=== PATIENT | female | born 1950 | race Caucasian/White ===

== ENCOUNTER 2020-06-26 13:49 | Emergency (ER) | payer MEDICARE, BC ==
[2020-06-26] MEDS: Aspirin 81 MG Tab.Chew PO ONE (14:09)
[2020-06-26 14:33] LABS: PTT,PARTIAL THROMBOPLSTIN TIME 24.7 SEC (25.6-32.8)
[2020-06-26 14:39] LABS: CHLORIDE,CL 102 mmol/L (98-107); SODIUM,NA 139 mmol/L (136-145)
[2020-06-26] MEDS: Nitroglycerin 0.4 MG Tab.SL SL ONE (14:46)
--- NOTE | 2020-06-26 14:46 | EDM.PDOC ---
ED HPI GENERAL MEDICAL PROBLEM - General Stated Complaint: TIGHTNESS Time Seen by Provider: 06/26/20 13:50 Source of Information: Reports: Patient History Limitations: Reports: No Limitations - History of Present Illness INITIAL COMMENTS - FREE TEXT/NARRATIVE: Patient comes emergency department today from home with complaints of tightness in her chest. This patient has a longstanding history of what she calls a cardiac dysrhythmia that she has PACs and PAT's. She has had increasing palpitations over the past couple of weeks. An EKG and Holter monitor placed on Sunday. Since last night every time that she gets up to do anything to ambulate around her when she starts to get tightness in her chest and she gets shortness of breath. This usually happens with physical exertion but it has been jefferson ppening at rest as well. Does improve most the time when she sits down. She did take her aspirin this morning is normal. She has had no cough or congestion. No weakness dizziness lightheadedness. No syncope. She has had increased palpitations especially with physical exertion. No diaphoresis nausea or vomiting. No generalized malaise or fatigue. No abdominal pain nausea or vomiting. No hematuria dysuria or urinary frequency. No black or tarry stools. She has never had any cardiac intervention. She is on Toprol for her palpitations. NO COVID exposure no COVID symptoms. She does have the tightness in her chest when she arrives and does not resolved when sitting down. Chest Pain Score (Numeric/FACES): 6 - Related Data Allergies Allergy/AdvReac Type Severity Reaction Status Date / Time epinephrine Allergy Arrhythmias Verified 06/26/20 14:35 Sulfa (Sulfonamide Allergy Rash Verified 06/26/20 14:35 Antibiotics) ED ROS GENERAL - Review of Systems Review Of Systems: Comprehensive ROS is negative, except as noted in HPI. ED EXAM, GENERAL - Physical Exam Exam: See Below Exam Limited By: No Limitations General Appearance: Alert, WD/WN, No Apparent Distress Eye Exam: Bilateral Eye: EOMI, PERRL Ears: Normal External Exam Nose: Normal Inspection, Normal Mucosa Throat/Mouth: Normal Inspection, Normal Lips, Normal Voice Head: Atraumatic, Normocephalic Neck: Normal Inspection, Supple, Non-Tender Respiratory/Chest: No Respiratory Distress, Lungs Clear, Normal Breath Sounds, No Accessory Muscle Use, Chest Non-Tender Cardiovascular: Normal Peripheral Pulses, Regular Rate, Rhythm Peripheral Pulses: 2+: Radial (L), Radial (R), Posterior Tibial (L), Posterior Tibial (R), Dorsalis Pedis (L), Dorsalis Pedis (R) GI/Abdominal: Normal Bowel Sounds, Soft, Non-Tender, No Distention (Female) Exam: Deferred Rectal (Female) Exam: Deferred Back Exam: Normal Inspection, Full Range of Motion Extremities: Normal Inspection, Normal Range of Motion, No Pedal Edema, Normal Capillary Refill Neurological: Alert, Oriented, Normal Cognition, No Motor/Sensory Deficits Psychiatric: Normal Affect, Normal Mood Skin Exam: Warm, Dry, Intact, Normal Color, No Rash #1 Interpretation EKG Date: 06/26/20 Time: 13:51 Rhythm: NSR Rate (Beats/Min): 88 [place]: Normal P-Wave: Present QRS: Normal ST-T: Normal QT: Normal Comparison: No Change Course - Vital Signs Last Recorded V/S: Last Vital Signs Temp 98.6 F 06/26/20 13:51 Pulse 79 06/26/20 15:07 Resp 16 06/26/20 15:07 BP 124/64 06/26/20 15:07 Pulse Ox 95 06/26/20 15:07 - Orders/Labs/Meds Orders: Active Orders 24 hr Category Date Time Status Peripheral IV Insertion Adult [OM.PC] Stat Oth 06/26/20 13:56 Ordered Labs: Laboratory Tests 06/26/20 06/26/20 06/26/20 Range/Units 14:05 14:05 14:05 WBC 6.8 (4.0-10.0) x10^3/uL RBC 4.87 (4.00-5.50) x10^6/uL Hgb 14.2 (12.0-16.0) g/dL Hct 42.7 (33.0-47.0) % MCV 87.7 (78.0-93.0) fL MCH 29.2 (26.0-32.0) pg MCHC 33.3 (32.0-36.0) g/dL RDW Coeff of Bert 14.1 (10.0-15.0) % Plt Count 285 (130-400) x10^3/uL Neut % (Auto) 56.2 (50.0-80.0) % Lymph % (Auto) 30.7 (25.0-50.0) % [place] % (Auto) 8.7 (2.0-11.0) % Eos % (Auto) 4.0 (0.0-4.0) % Baso % (Auto) 0.4 (0.2-1.2) % PT 10.4 (9.9-12.5) SEC INR 0.9 L (2.0-3.5) APTT 24.7 L (25.6-32.8) SEC Sodium 139 (136-145) mmol/L Potassium 5.0 (3.5-5.1) mmol/L Chloride 102 (98-107) mmol/L Carbon Dioxide 28 (21-32) mmol/L Anion Gap 14.0 (5-15) mmol/L BUN 16 (7-18) mg/dL Creatinine 0.7 (0.55-1.02) mg/dL Est Cr Clr Drug Dosing TNP Estimated GFR (MDRD) > 60 Glucose 105 (74-106) mg/dL Calcium 9.2 (8.5-10.1) mg/dL Corrected Calcium 9.60 (8.5-10.1) mg/dL Total Bilirubin 0.5 (0.2-1.0) mg/dL AST 47 H (15-37) U/L ALT 31 (14-59) U/L Alkaline Phosphatase 85 (46-116) U/L Troponin I < 0.017 (<=0.056) ng/mL Total Protein 7.9 (6.4-8.2) g/dL Albumin 3.5 (3.4-5.0) g/dL Globulin 4.4 Albumin/Globulin Ratio 0.80 Meds: Medications Discontinued Medications Generic Name Dose Route Start Last Admin Trade Name Freq PRN Reason Stop Dose Admin Aspirin 324 mg 06/26/20 13:57 06/26/20 14:09 Aspirin PO 06/26/20 13:58 324 mg ONETIME ONE Administration Heparin Sodium (Porcine) 4,000 units 06/26/20 16:11 06/26/20 16:21 Heparin Sodium IVPUSH 06/26/20 16:12 4,000 units .BOLUS ONE Administration Heparin Sodium (Porcine) Confirm 06/26/20 16:25 06/26/20 16:24 Heparin Sodium Administered 06/26/20 16:26 Not Given Dose 5,000 units .ROUTE .STK-MED ONE Nitroglycerin/Dextrose 25 mg in 250 mls @ 6 mls/hr 06/26/20 16:15 06/26/20 16:19 Nitroglycerin 25 Mg/D5w 250 Ml IV 5 mcg/min TITRATE TINO 3 mls/hr Administration Protocol 10 MCG/MIN Heparin Sodium/Sodium Chloride 25,000 units in 500 mls @ 16.8 mls/hr 06/26/20 16:15 06/26/20 16:20 Heparin 25,000 Units In 1/2 Ns 500 Ml IV 840 units/hr TITRATE TINO 16.8 mls/hr Administration Protocol 840 UNITS/HR Heparin Sodium/Sodium Chloride Confirm 06/26/20 16:25 06/26/20 16:24 Heparin 25,000 Units In 1/2 Ns 500 Ml Administered 06/26/20 16:26 Not Given Dose 500 mls @ as directed .ROUTE .STK-MED ONE Nitroglycerin 0.4 mg 06/26/20 14:27 06/26/20 14:46 Nitrostat SL 06/26/20 14:28 0.4 mg ONETIME ONE Administration Sodium Chloride 10 ml 06/26/20 13:57 06/26/20 14:47 Saline Flush FLUSH 10 ml ASDIRECTED PRN Administration Keep Vein Open - Re-Assessments/Exams Free Text/Narrative Re-Assessment/Exam: 06/26/[address] elevation or depression with some PACs. Aspirin 324 orally and 1 nitro tab SL. Nitro with resolution of the SOB and tightness. Labs drawn CXR negative per radiology. Laboratory evaluation is rather unremarkable with a normal white blood cell count hemoglobin and platelets. Her CMP is normal other than an AST mildly elevated at 47. Troponin less than 0.017. Shortly after her labs returned she got up and went back to the bathroom and she had recurrence of the tightness in her chest that maintained while she was laying in bed. I then started on nitro drip at 5 mics a minute as well as heparin of 4000 unit bolus and then 840 units an hour. I have concerns for Unstable angina at this time. I called and spoke with Dr. Burch at [facility] in [place]. HPI ER COURSE findings and concerns were relayed to him verbally over the phone. His questions were answered and he was comfortable with this plan and he accepted the patient in transfer at this time. I returned to the room and discussed with the patient my concerns for unstable angina with her presentation and resolution of chest pain with nitro and his reoccurrence with physical exertion. I think it is best for her to be where cardiology is and possibly get a stress test in the morning. She is agreement with this. We will transfer to [facility] by [facility] ambulance. Departure - Departure Time of Disposition: 15:35 Disposition: DC/Tfer to [facility] 02 Reason for Transfer *Q: Other Clinical Impression: Unstable angina Referrals: Meena Swift MD [Primary Care Provider] - Forms: Interfacility Transfer EMTALA Sepsis Event Note (ED) - Focused Exam Vital Signs: Vital Signs Temp Pulse Resp BP BP Pulse Ox 06/26/20 15:07 79 16 124/64 95 06/26/20 14:49 68 15 131/61 98 06/26/20 14:46 131/61 06/26/20 14:37 72 18 120/58 L 98 06/26/20 13:51 98.6 F 81 14 161/68 H 99 - My Orders Last 24 Hours: My Active Orders 06/26/20 13:56 Peripheral IV Insertion Adult [OM.PC] Stat - Assessment/Plan Last 24 Hours: My Active Orders 06/26/20 13:56 Peripheral IV Insertion Adult [OM.PC] Stat
[2020-06-26] MEDS: Sodium Chloride 0.9% 10 ML Syringe FLUSH PRN (14:47)
--- NOTE | 2020-06-26 15:13 | CR ---
[id number] RAD/RAD Chest PA And Lateral EXAM: RAD Chest PA And Lateral INDICATION: CHEST PAIN, PALPITATION. COMPARISON: None. DISCUSSION: Cardiomediastinal silhouette is normal in size and contour. Lungs are clear. No pleural effusion or pneumothorax. IMPRESSION: Negative examination of the chest. Austin Love MD 06/26/20 [id number] Thank you for allowing us to participate in the care of your patient.
[2020-06-26] MEDS: Nitroglycerin/D5W 25 MG/250 ML BOTTLE IV SCH (16:19)
[2020-06-26] MEDS: Heparin Sodium/0.45% NaCl 25,000 UNITS/500 ML BAG IV SCH (16:20)
[2020-06-26] MEDS: Heparin Sodium 5,000 Units/ML Vial IVPUSH ONE (16:21)
[2020-06-26] MEDS: Heparin Sodium 5,000 Units/ML Vial ONE (16:24)
[2020-06-26] MEDS: Heparin Sodium/0.45% NaCl 500 ML ONE (16:24)
== END 2020-06-26 16:59 | disposition short-term general hospital (02) ==
LOC: VM.ED 13:49
DX: I20.0 Unstable angina (principal); R74.01 Elevation of levels of liver transaminase levels; Z88.8 Allergy status to other drugs, medicaments and biological substances; Z88.2 Allergy status to sulfonamides
CPT/HCPCS: 71046; 80053; 84484; 85025; 85610; 85730; 93005; 93010; 96365; 96368; 99284; 99285-25; A9270-GY; J1644; J3490

== ENCOUNTER 2022-10-02 10:34 | Emergency (ER) | payer MEDICARE ==
[2022-10-02 11:11] LABS: BASOPHILS PERCENT AUTO 0.7 % (0.2-1.2); EOSINOPHILS ABSOLUTE AUTO 0.1 x10^3/uL (0.0-0.5); EOSINOPHILS PERCENT AUTO 1.9 % (0.0-4.0); HEMATOCRIT 43.6 % (33.0-47.0); HEMOGLOBIN 14.6 g/dL (12.0-16.0); LYMPHOCYTES ABSOLUTE AUTO 1.7 x10^3/uL (1.0-4.8); LYMPHOCYTES PERCENT AUTO 30.6 % (25.0-50.0); MEAN CORPUSCULAR HEMOGLOBIN 29.7 pg (26.0-32.0); MEAN CORPUSCULAR HGB CONC 33.5 g/dL (32.0-36.0); MEAN CORPUSCULAR VOLUME 88.8 fL (78.0-93.0); MONOCYTES ABSOLUTE AUTO 0.4 x10^3/uL (0.0-0.8); NEUTROPHILS ABSOLUTE AUTO 3.4 x10^3/uL (1.8-7.7); NEUTROPHILS PERCENT AUTO 59.8 % (50.0-80.0); PLATELET COUNT,PLT 279 x10^3/uL (130-400); RED BLOOD CELL COUNT 4.91 x10^6/uL (4.00-5.50); WHITE BLOOD CELL COUNT,WBC 5.7 x10^3/uL (4.0-10.0)
[2022-10-02 11:39] LABS: A/G RATIO 0.92; ALANINE AMINOTRANSFERASE,ALT 28 U/L (14-59); ALBUMIN 3.5 g/dL (3.4-5.0); ALKALINE PHOSPHATASE 80 U/L (46-116); ASPARTATE AMNIOTRANSFERASE,AST 18 U/L (15-37); BILIRUBIN TOTAL 0.3 mg/dL (0.2-1.0); BLOOD UREA NITROGEN,BUN 13 mg/dL (7-18); CALCIUM 9.4 mg/dL (8.5-10.1); CARBON DIOXIDE,CO2 31 mmol/L (21-32); CHLORIDE,CL 103 mmol/L (98-107); CREATININE 0.7 mg/dL (0.55-1.02); GLUCOSE RANDOM 100 mg/dL (70-99); MAGNESIUM 1.7 mg/dL (1.8-2.4); PHOSPHORUS 3.5 mg/dL (2.6-4.7); PROTEIN TOTAL,TP 7.3 g/dL (6.4-8.2); SODIUM,NA 139 mmol/L (136-145); TSH ULTRASENSITIVE 1.671 uIU/mL (0.358-3.74)
[2022-10-02 11:40] LABS: C-REACTIVE PROTEIN < 0.2 mg/dL (<=0.9); ESTIMATED GFR 93 mL/min (>=60)
== END 2022-10-02 12:11 | disposition home or self-care (01) ==
LOC: MERGE 10:34 → VM.ED 10:34
DX: I48.0 Paroxysmal atrial fibrillation (principal); Z88.8 Allergy status to other drugs, medicaments and biological substances; Z88.2 Allergy status to sulfonamides
CPT/HCPCS: 36415; 71045; 80053; 83735; 84100; 84443; 84484; 85025; 86140; 93005; 93010; 99284; 99285